=== PATIENT | female | born 1990 | race Caucasian/White ===

== ENCOUNTER 2018-01-18 14:51 | Emergency (ER) | payer MEDICAID ==
[2018-01-18 15:25] VITALS: RESP 18; O2SAT 100
[2018-01-18] MEDS ORDERED: Lidocaine 5% Patch TD STA (15:31)
--- NOTE | 2018-01-18 15:43 | ED PDOC ---
HPI: Back Time Seen by Provider: 01/18/18 15:30 Chief Complaint (Nursing): Back Pain Chief Complaint (Provider): Lower Back Pain History Per: Patient, [employer] Manager ([id number] ) History/Exam Limitations: no limitations Onset/Duration Of Symptoms: Days Quality Of Discomfort: "Pain" Exacerbating Factor(s): Movement Additional Complaint(s): 27 year old female presents to ED for an evaluation of lower back pain onset Friday. She reports the pain radiates down to her right lower leg. She states the pain becomes worse with movement. She took Advil without any relief. Patient denies dysuria, incontinence (stool and urine), saddle paresthesia or trauma. PMD: Non [facility] Provider Past Medical History Reviewed: Historical Data, Nursing Documentation, Vital Signs Vital Signs: Last Vital Signs Temp 97.8 F 01/18/18 15:23 Pulse 71 01/18/18 15:23 Resp 18 01/18/18 15:23 BP 110/78 01/18/18 15:23 Pulse Ox 100 01/18/18 15:23 - Medical History PMH: No Chronic Diseases - Surgical History Surgical History: (2x) - Family History Family History: States: Unknown Family Hx - Home Medications Home Medications: Ambulatory Orders Medication Instructions Recorded Nitrofurantoin Macrocrystals 1 cap PO BID #14 cap 05/04/15 [Macrobid] Vits96/Iron Fum/Folic 1 tab PO DAILY #100 tab 05/04/15 [] Naproxen [Naprosyn] 500 mg PO BID PRN #10 tab 01/18/18 Nitrofurantoin Macrocrystals 100 mg PO BID #14 cap 01/18/18 [Macrobid] - Allergies Allergies/Adverse Reactions: Allergies Allergy/AdvReac Type Severity Reaction Status Date / Time No Known Allergies Allergy Verified 01/18/18 15:23 Review of Systems ROS Statement: Except As Marked, All Systems Reviewed And Found Negative Constitutional: Negative for: Other (trauma) Genitourinary Female: Negative for: Dysuria, Frequency, Incontinence, Hematuria Musculoskeletal: Positive for: Back Pain (lower) Physical Exam - Reviewed Nursing Documentation Reviewed: Yes Vital Signs Reviewed: Yes - Physical Exam Appears: Positive for: Non-toxic, No Acute Distress Head Exam: Positive for: ATRAUMATIC, NORMAL INSPECTION, NORMOCEPHALIC Skin: Positive for: Normal Color, Warm, Dry Cardiovascular/Chest: Positive for: Regular Rate, Rhythm. Negative for: Murmur Respiratory: Positive for: Normal Breath Sounds. Negative for: Decreased Breath Sounds, Wheezing, Respiratory Distress Gastrointestinal/Abdominal: Positive for: Soft. Negative for: Tenderness Back: Positive for: Normal Inspection, Muscle Spasm, Other (paralumbar tenderness bilateral). Negative for: L CVA Tenderness, R CVA Tenderness, Vertebral Tenderness (bilateral) Neurologic/Psych: Positive for: Alert, Oriented (x3). Negative for: Motor/ Sensory Deficits - ECG O2 Sat by Pulse Oximetry: 100 (RA) Pulse Ox Interpretation: Normal - Progress Re-evaluation Time: 17:05 Condition: Re-examined, Improved Medical Decision Making Medical Decision Making: Time: 1530 Initial Plan: --ED Urine --Flexeril 10mg --Lidoderm --Toradol 30mg --Urinalysis --Reevaluation Scribe Attestation: Documented by Lucie Ramirez, acting as a scribe for Tremayne Mejias PA-C. Provider Scribe Attestation: All medical record entries made by the Scribe were at my direction and personally dictated by me. I have reviewed the chart and agree that the record accurately reflects my personal performance of the history, physical exam, medical decision making, and the department course for this patient. I have also personally directed, reviewed, and agree with the discharge instructions and disposition. Disposition - Clinical Impression Clinical Impression: UTI (urinary tract infection) - Patient ED Disposition Is Patient to be Admitted: No - Disposition Referrals: Milagros Nielsen MD [Family Provider] - Disposition: Routine/Home Disposition Time: 17:06 Condition: STABLE Additional Instructions: KALI JUAREZ, thank you for letting us take care of you today. Your provider was Vivian Torrez MD and you were treated for HIP PAIN. The emergency medical care you received today was directed at your acute symptoms. If you were prescribed any medication, please fill it and take as directed. It may take several days for your symptoms to resolve. Return to the Emergency Department if your symptoms worsen, do not improve, or if you have any other problems. Please contact your doctor or call one of the physicians/clinics you have been referred to that are listed on the Patient Visit Information form that is included in your discharge packet. Bring any paperwork you were given at discharge with you along with any medications you are taking to your follow up visit. Our treatment cannot replace ongoing medical care by a primary care provider outside of the emergency department. Thank you for allowing the [facility] team to be part of your care today. If you had an X-Ray or CT scan: A Radiologist will review the ED reading if any change in treatment is needed we will contact you. If you had a blood, urine, or wound culture: It will take several days for the results, if any change in treatment is needed we will contact you. If you had an STI test: It will take 48 hours for the results. Please call after 1 week if you have not heard back. Prescriptions: Naproxen [Naprosyn] 500 mg PO BID PRN #10 tab PRN Reason: Pain Nitrofurantoin Macrocrystals [Macrobid] 100 mg PO BID #14 cap Instructions: Urinary Tract Infection, Adult (DC) Forms: [employer] ([place])
[2018-01-18] MEDS ORDERED: Lidocaine 5% Patch TD ONE (16:02)
[2018-01-18 16:19] LABS: SQUAMOUS EPITHIAL 6 /hpf (0-5); URINE BACTERIA OCC (<OCC); URINE BILIRUBIN NEGATIVE (NEGATIVE); URINE BLOOD SMALL (NEGATIVE); URINE CLARITY CLOUDY (Clear); URINE COLOR YELLOW (YELLOW); URINE GLUCOSE (UA) NEG (Normal); URINE LEUKOCYTE ESTERASE LARGE Leu/uL (Negative); URINE PROTEIN NEGATIVE (NEGATIVE); URINE UROBILINOGEN 0.2-1.0 mg/dL (0.2-1.0)
[2018-01-18 17:35] VITALS: BP 111/80; PULSE 78; TEMP 98
--- NOTE | 2018-01-18 18:07 | RAD ---
Date of service: 01/18/2018 PROCEDURE: Radiographs of the Lumbar Spine. HISTORY: pain COMPARISON: No prior. FINDINGS: BONES: Normal alignment. No listhesis. No fracture. DISC SPACES: Unremarkable. OTHER FINDINGS: None. IMPRESSION: Unremarkable radiographs of the lumbar spine.
== END 2018-01-18 17:34 | disposition home or self-care (01) ==
LOC: H.ER 14:51
DX: N39.0 Urinary tract infection, site not specified (principal)
CPT/HCPCS: 72100; 81003; 81025; 87086; 96372; 99283; J1885